=== PATIENT | female | born 1960 | race Caucasian/White ===

== ENCOUNTER 2023-01-22 07:39 | Day surgery (SDC) | payer OTHER ==
[~2023-01-22 07:39] MED LIST: Lactated Ringers 1,000 ML IV SCH; Ropivacaine 0.5% 5 MG/ML 30 ML SDV ONE; Sodium Chloride 0.9% 10 ML Syringe FLUSH PRN
[2023-01-22] MEDS ORDERED: Acetaminophen 325 MG Tab PO ONE (07:45)
[2023-01-22] MEDS ORDERED: Pregabalin 25 MG Cap PO ONE (07:45)
[2023-01-22] MEDS ORDERED: oxyCODONE ER 10 MG TAB.ER PO ONE (07:45)
[2023-01-22] MEDS ORDERED: Midazolam 1 MG/ML 2 ML SDV ONE (08:45)
[2023-01-22] MEDS ORDERED: fentaNYL 100 MCG/2 ML SDV ONE (08:45)
[2023-01-22] MEDS ORDERED: Propofol 200 MG/20 ML SDV ONE ×3 (08:45→11:39)
[2023-01-22] MEDS ORDERED: Lidocaine 1% 2 ML ONE (08:46)
[2023-01-22] MEDS ORDERED: ceFAZolin 2 GM Vial ONE (08:50)
[2023-01-22] MEDS ORDERED: Sodium Chloride 0.9% 10 ML Syringe FLUSH SCH (09:00)
[2023-01-22] MEDS ORDERED: fentaNYL 100 MCG/2 ML SDV IVPUSH PRN (10:18)
[2023-01-22] MEDS ORDERED: Ondansetron 4 MG/2 ML SDV IVPUSH PRN (10:18)
[2023-01-22] MEDS ORDERED: HYDROmorphone 0.5 MG/0.5 ML Syringe IVPUSH PRN (10:18)
[2023-01-22] MEDS ORDERED: ePHEDrine 50 MG/ML SDV ONE (11:00)
[2023-01-22] MEDS: Morphine 8 MG, EPINEPHrine 0.3 MG, Cefuroxime 750 MG, Ketorolac 30 MG, Sodium Chloride ... PRN ×10 (11:29→11:55)
[2023-01-22] MEDS ORDERED: Lactated Ringers 1,000 ML IV ONE (11:30)
[2023-01-22] MEDS: Tranexamic Acid 1,000 MG/10 ML Vial ONE ×2 (11:30→12:03)
[2023-01-22] MEDS: Bupivacaine 0.25% 10 ML SDV ONE ×2 (11:30→12:18)
[2023-01-22] MEDS: Triamcinolone Acetonide 40 MG/ML 1 ML SDV ONE ×2 (11:30→12:18)
[2023-01-22] MEDS: Vancomycin 1 GM SDV ONE ×2 (11:30→12:03)
[2023-01-22] MEDS ORDERED: EPINEPHrine 1 MG/ML SDV ONE (13:07)
[2023-01-22] MEDS ORDERED: oxyCODONE 5 MG Tab PO SCH (13:19)
== END 2023-01-22 15:20 | disposition home or self-care (01) ==
LOC: JD.SDS 07:39
PROVIDERS: ATTEND Orthopaedic Surgery
DX: M17.0 Bilateral primary osteoarthritis of knee (principal); K21.9 Gastro-esophageal reflux disease without esophagitis; I10 Essential (primary) hypertension; N95.8 Other specified menopausal and perimenopausal disorders; R73.9 Hyperglycemia, unspecified; E78.00 Pure hypercholesterolemia, unspecified; Z87.891 Personal history of nicotine dependence; Z79.82 Long term (current) use of aspirin; Z79.899 Other long term (current) drug therapy; Z88.8 Allergy status to other drugs, medicaments and biological substances
CPT/HCPCS: 0055T; 27447; 64447; 73560; 97110; 97116; 97161; A9270; C1713; C1776; J0171; J0690; J0697; J1885; J2250; J2270; J2405; J2704; J2795; J3010; J3301; J3370; J3490; J7030; J7120; 01402

== ENCOUNTER 2023-03-05 05:00 | Day surgery (SDC) | payer BC ==
[~2023-03-05 05:00] MED LIST changes: -Ropivacaine 0.5% 5 MG/ML 30 ML SDV ONE; +Sodium Chloride 0.9% 10 ML Syringe FLUSH SCH
[2023-03-05] MEDS ORDERED: Propofol 200 MG/20 ML SDV ONE (05:46)
[2023-03-05] MEDS ORDERED: Lidocaine 1% 6 ML ONE (05:47)
[2023-03-05] MEDS ORDERED: dexmedeTOMIDine HCl 200 MCG/2 ML SDV ONE (06:00)
[2023-03-05] MEDS ORDERED: Ropivacaine 0.5% 5 MG/ML 30 ML SDV ONE (06:00)
[2023-03-05] MEDS ORDERED: Midazolam 1 MG/ML 2 ML SDV ONE (06:03)
[2023-03-05] MEDS ORDERED: EPINEPHrine 1 MG/ML SDV ONE (06:03)
[2023-03-05] MEDS ORDERED: fentaNYL 100 MCG/2 ML SDV ONE (06:03)
[2023-03-05] MEDS ORDERED: Dexamethasone 4 MG/ML 5 ML MDV ONE (06:03)
[2023-03-05] MEDS ORDERED: fentaNYL 100 MCG/2 ML SDV IVPUSH PRN (07:23)
[2023-03-05] MEDS ORDERED: oxyCODONE 5 MG Tab PO PRN (07:42)
== END 2023-03-05 08:45 | disposition home or self-care (01) ==
LOC: JD.SDS 05:00
PROVIDERS: ATTEND Orthopaedic Surgery
DX: M24.662 Ankylosis, left knee (principal); E04.9 Nontoxic goiter, unspecified; E66.9 Obesity, unspecified; Z68.31 Body mass index [BMI] 31.0-31.9, adult; Z79.899 Other long term (current) drug therapy; Z88.2 Allergy status to sulfonamides; Z01.818 Encounter for other preprocedural examination
CPT/HCPCS: 27570; A9270; J0171; J1100; J2250; J2704; J2795; J3010; J7120; J3490